=== PATIENT | female | born 1955 | race Caucasian/White ===

== ENCOUNTER → 2018-02-23 09:09 | Outpatient (CLI) | payer OTHER, SELFPAY ==
[2018-02-23 10:04] LABS: Alanine Aminotransferase 23 IU/L (9-52); Albumin 4.5 g/dL (3.5-5.0); Albumin Globulin Ratio 1.3 (1.0-2.8); Alkaline Phosphatase 78 U/L (38-126); Aspartate Aminotransferase 27 IU/L (14-36); BUN Creatinine Ratio 16.3 (6-22); Bilirubin Total 0.7 mg/dL (0.2-1.3); Blood Urea Nitrogen 13 mg/dL (7-17); Calcium 9.3 mg/dL (8.4-10.2); Carbon Dioxide 31 mmol/L (22-32); Chloride 99 mmol/L (98-107); Cholesterol 181 mg/dL (140-199); Estimated Glomerular Filt Rate > 60.0 mL/min (>60); Globulin 3.5 g/dL (1.7-4.1); Glucose 135 mg/dL (80-110); HDL Cholesterol 59 mg/dL (40-60); HEMOLYSIS < 15 (0-50); LDL Cholesterol Calculated 95 mg/dL (<100); Potassium 3.9 mmol/L (3.4-5.1); Sodium 142 mmol/L (137-145); Triglycerides 136 mg/dL (35-150)
== END ==
PROVIDERS: Family Provider Physician Assistant; PCP Physician Assistant; Visit Provider Physician Assistant
DX: E78.5 Hyperlipidemia, unspecified (principal); Z51.81 Encounter for therapeutic drug level monitoring
CPT/HCPCS: 36415; 80053; 80061

== ENCOUNTER → 2018-02-28 11:40 | Outpatient (CLI) | payer OTHER, SELFPAY ==
[2018-02-28 12:21] LABS: Hemoglobin A1C% w Est Avg Glu 6.3 % (4.0-6.0)
== END ==
PROVIDERS: PCP Physician Assistant; Visit Provider Physician Assistant
DX: R73.01 Impaired fasting glucose (principal)
CPT/HCPCS: 36415; 83036

== ENCOUNTER → 2018-10-26 09:13 | Outpatient (CLI) | payer OTHER, SELFPAY ==
[2018-10-26 09:55] LABS: Hemoglobin A1C% w Est Avg Glu 6.8 % (4.0-6.0)
[2018-10-26 10:18] LABS: Creatinine Urine Random 114.5 mg/dL
[2018-10-26 10:21] LABS: Alanine Aminotransferase 28 IU/L (9-52); Albumin 4.4 g/dL (3.5-5.0); Albumin Globulin Ratio 1.4 (1.0-2.8); Alkaline Phosphatase 76 U/L (38-126); Aspartate Aminotransferase 27 IU/L (14-36); BUN Creatinine Ratio 16.7 (6-22); Bilirubin Total 0.5 mg/dL (0.2-1.3); Blood Urea Nitrogen 10 mg/dL (7-17); Calcium 9.3 mg/dL (8.4-10.2); Carbon Dioxide 29 mmol/L (22-32); Chloride 101 mmol/L (98-107); Cholesterol 172 mg/dL (140-199); Estimated Glomerular Filt Rate > 60.0 mL/min (>60); Globulin 3.2 g/dL (1.7-4.1); Glucose 133 mg/dL (80-110); HDL Cholesterol 55 mg/dL (40-60); HEMOLYSIS < 15 (0-50); LDL Cholesterol Calculated 83 mg/dL (<100); Potassium 4.3 mmol/L (3.4-5.1); Sodium 138 mmol/L (137-145); Total Protein 7.6 g/dL (6.3-8.2); Triglycerides 169 mg/dL (35-150)
[2018-10-26 10:23] LABS: Microalbumi Creatinin Ratio Ur 6.1 ug/mg CR (<30); Microalbumin Urine Random 0.7 mg/dL (0-1.6)
== END ==
PROVIDERS: PCP Physician Assistant; Visit Provider Physician Assistant
DX: E78.2 Mixed hyperlipidemia (principal); R73.01 Impaired fasting glucose
CPT/HCPCS: 36415; 80053; 80061; 82043; 82570; 83036

== ENCOUNTER → 2018-11-02 15:30 | Outpatient (CLI) | payer OTHER, SELFPAY ==
--- NOTE | 2018-11-02 | DI.MG.S_ITS ---
BILATERAL DIGITAL SCREENING MAMMOGRAM 3D/2D WITH CAD: 11/02/2018 CLINICAL: Routine screening. Family history of breast cancer. Comparison is made to exams dated: 03/02/2017 mammogram, 12/26/2012 mammogram, and 11/24/2011 mammogram - [facility]. There are scattered fibroglandular elements in both breasts. Current study was also evaluated with a Computer Aided Detection (CAD) system. No significant masses, calcifications, or other findings are seen in either breast. There has been no significant interval change. IMPRESSION: NEGATIVE There is no mammographic evidence of malignancy. A 1 year screening mammogram is recommended. This exam was interpreted at Station ID: [id number]. NOTE: For mammograms, a report in lay terms will be sent to the patient. Approximately 15% of breast malignancies will not be visualized mammographically. In the management of a palpable breast mass, a negative mammogram must not discourage biopsy of a clinically suspicious lesion. Electronically Signed By: Casandra frazier/david:11/02/2018 16:58:47 letter sent: Normal Exam ACR BI-RADS Category 1: Negative 3341F
== END ==
PROVIDERS: PCP Physician Assistant; Visit Provider Physician Assistant
DX: Z12.31 Encounter for screening mammogram for malignant neoplasm of breast (principal); Z80.3 Family history of malignant neoplasm of breast
CPT/HCPCS: 77063; 77067

== ENCOUNTER → 2019-03-15 10:13 | Outpatient (CLI) | payer OTHER, SELFPAY ==
[2019-03-15 11:10] LABS: Hemoglobin A1C% w Est Avg Glu 6.8 % (4.0-6.0)
[2019-03-15 11:34] LABS: Alanine Aminotransferase 19 IU/L (9-52); Albumin 4.4 g/dL (3.5-5.0); Albumin Globulin Ratio 1.3 (1.0-2.8); Alkaline Phosphatase 92 U/L (38-126); Aspartate Aminotransferase 28 IU/L (14-36); BUN Creatinine Ratio 15.7 (6-22); Bilirubin Total 0.6 mg/dL (0.2-1.3); Blood Urea Nitrogen 11 mg/dL (7-17); Calcium 9.6 mg/dL (8.4-10.2); Carbon Dioxide 30 mmol/L (22-32); Chloride 101 mmol/L (98-107); Cholesterol 221 mg/dL (140-199); Estimated Glomerular Filt Rate > 60.0 mL/min (>60); Globulin 3.5 g/dL (1.7-4.1); Glucose 140 mg/dL (80-110); HDL Cholesterol 59 mg/dL (40-60); HEMOLYSIS < 15 (0-50); LDL Cholesterol Calculated 124 mg/dL (<100); Potassium 4.3 mmol/L (3.4-5.1); Sodium 139 mmol/L (137-145); Total Protein 7.9 g/dL (6.3-8.2); Triglycerides 188 mg/dL (35-150)
[2019-03-15 12:44] LABS: Creatinine Urine Random 73.5 mg/dL
[2019-03-15 12:49] LABS: Microalbumi Creatinin Ratio Ur 8.1 ug/mg CR (<30); Microalbumin Urine Random < 0.6 mg/dL (0-1.6)
== END ==
PROVIDERS: PCP Physician Assistant; Visit Provider Physician Assistant
DX: E11.9 Type 2 diabetes mellitus without complications (principal); E78.2 Mixed hyperlipidemia; Z51.81 Encounter for therapeutic drug level monitoring
CPT/HCPCS: 36415; 80053; 80061; 82043; 82570; 83036

== ENCOUNTER → 2019-09-21 09:56 | Outpatient (CLI) | payer OTHER, SELFPAY ==
[2019-09-21 11:09] LABS: Hemoglobin A1C% w Est Avg Glu 6.8 % (4.0-6.0)
[2019-09-21 11:10] LABS: Alanine Aminotransferase 18 IU/L (<35); Albumin 4.4 g/dL (3.5-5.0); Albumin Globulin Ratio 1.4 (1.0-2.8); Alkaline Phosphatase 89 U/L (38-126); Aspartate Aminotransferase 25 IU/L (14-36); BUN Creatinine Ratio 17.1 (6-22); Bilirubin Total 0.6 mg/dL (0.2-1.3); Blood Urea Nitrogen 12 mg/dL (7-17); Calcium 9.7 mg/dL (8.4-10.2); Carbon Dioxide 28 mmol/L (22-32); Chloride 100 mmol/L (98-107); Cholesterol 179 mg/dL (140-199); Estimated Glomerular Filt Rate > 60.0 mL/min (>60); Globulin 3.2 g/dL (1.7-4.1); Glucose 139 mg/dL (80-110); HDL Cholesterol 58 mg/dL (40-60); HEMOLYSIS < 15 (0-50); LDL Cholesterol Calculated 85 mg/dL (<100); Potassium 4.4 mmol/L (3.4-5.1); Sodium 138 mmol/L (137-145); Total Protein 7.6 g/dL (6.3-8.2); Triglycerides 179 mg/dL (35-150)
[2019-09-21 14:22] LABS: Microalbumin Urine Random 0.9 mg/dL (0-1.6)
== END ==
PROVIDERS: PCP Physician Assistant; Referring Provider Physician Assistant; Visit Provider Physician Assistant
DX: E11.9 Type 2 diabetes mellitus without complications (principal); E78.2 Mixed hyperlipidemia
CPT/HCPCS: 36415; 80053; 80061; 82043; 82570; 83036

== ENCOUNTER → 2020-02-19 10:26 | Outpatient (CLI) | payer OTHER, SELFPAY ==
[2020-02-19 12:14] LABS: Hemoglobin A1C% w Est Avg Glu 7.5 % (4.0-6.0)
== END ==
LOC: LAB 10:27
PROVIDERS: PCP Registered Nurse Diabetes Educator; Referring Provider Registered Nurse Diabetes Educator; Visit Provider Registered Nurse Diabetes Educator
DX: E11.9 Type 2 diabetes mellitus without complications (principal)
CPT/HCPCS: 36415; 83036

== ENCOUNTER → 2021-05-26 17:41 | Outpatient (CLI) | payer OTHER, SELFPAY ==
[2021-05-26 18:05] LABS: Hematocrit 42.5 % (36-46); Hemoglobin 13.9 g/dL (12.0-16.0); Mean Corpuscular HGB Conc 32.8 % (30-36); Mean Corpuscular Hemoglobin 27.6 PG (26-34); Mean Corpuscular Volume 84.1 fL (80-100); Platelet Count 278 X10^3/uL (150-400); Red Blood Cell Count 5.05 X10^6/uL (4.0-5.2); White Blood Cell Count 5.9 X10^3/uL (4.5-11.0)
[2021-05-26 18:18] LABS: Hemoglobin A1C% w Est Avg Glu 11.1 % (4.0-6.0)
[2021-05-26 18:22] LABS: Alanine Aminotransferase 34 IU/L (<35); Albumin 4.5 g/dL (3.5-5.0); Albumin Globulin Ratio 1.3 (1.0-2.8); Alkaline Phosphatase 118 U/L (38-126); Aspartate Aminotransferase 46 IU/L (14-36); BUN Creatinine Ratio 18.2 (6-22); Bilirubin Total 0.5 mg/dL (0.2-1.3); Blood Urea Nitrogen 8 mg/dL (7-17); Calcium 9.6 mg/dL (8.4-10.2); Carbon Dioxide 32 mmol/L (22-32); Chloride 99 mmol/L (98-107); Cholesterol 225 mg/dL (140-199); Estimated Glomerular Filt Rate > 60.0 mL/min (>60); Globulin 3.4 g/dL (1.7-4.1); Glucose 159 mg/dL (80-110); HDL Cholesterol 60 mg/dL (40-60); HEMOLYSIS < 15 (0-50); LDL Cholesterol Calculated 120 mg/dL (<100); Potassium 3.7 mmol/L (3.4-5.1); Sodium 139 mmol/L (137-145); Total Protein 7.9 g/dL (6.3-8.2); Triglycerides 225 mg/dL (35-150)
[2021-05-26 18:52] LABS: TSH w/ Reflex to FT4 1.45 uIU/mL (0.47-4.68)
[2021-05-26 19:04] LABS: Creatinine Urine Random 82.5 mg/dL
[2021-05-26 19:09] LABS: Microalbumi Creatinin Ratio Ur 36.3 ug/mg CR (<30)
== END ==
PROVIDERS: PCP Registered Nurse Diabetes Educator; Referring Provider Registered Nurse Diabetes Educator; Visit Provider Registered Nurse Diabetes Educator
DX: E11.9 Type 2 diabetes mellitus without complications (principal); E78.2 Mixed hyperlipidemia
CPT/HCPCS: 36415; 80053; 80061; 82043; 82570; 83036; 84443; 85027

== ENCOUNTER → 2021-05-28 14:34 | Outpatient (CLI) | payer OTHER, SELFPAY ==
[2021-05-28 15:12] LABS: COVID19 -Nasal RAPID POSITIVE (Negative)
== END ==
PROVIDERS: PCP Registered Nurse Diabetes Educator; Visit Provider Nurse Practitioner
DX: U07.1 COVID-19 (principal)
CPT/HCPCS: 87635

== ENCOUNTER → 2021-10-06 09:15 | Outpatient (CLI) | payer OTHER, SELFPAY ==
--- NOTE | 2021-10-06 14:04 | DIAB.INIT ---
Initial Diabetes Education Assessment Name: Jess Smith Date: 10/06/21 Time: [id number] Dx: type II diabetes Provider: Jose Preferred Learning Style: Karol Mercado presents for initial diabetes education visit. FH of Dm with 4/7 brothers, 5 sisters, and paternal grandmother. Endorses PMH of GDM in 1995 with youngest child. Reports trying to manage her Bg for many years. Per her labs this is the first time her HgA1c was >8%. Endorses high stress over the last two years with custody issues around her granddaughter, whom she is close with and watches regularly. This is a tearful explanation and it seems the stress of this has impacted her health. Further, she reports difficulty focusing on making lifestyle changes and caring for herself during this time. To manage stress, she reads books, watches TV, or tries to stay busy. Socially she has not seen friends in some time and often forgets what day it is. She has increased Metformin ER to 1000mg BID. c/o diarrhea even on ER, but is not taking this with food. Takes morning dose with milk and evening dose 2-3 hrs after dinner. Worries Metformin negatively impacts her kidneys. Worries about needing additional medications. Not amenable to injections. Anthropometrics: Ht: 62 Wt: 170# (reported and at last PCP visit) Weight history: Reports a 9# loss, which she attributes to not eating enough when stressed. Likely hyperglycemia may play a role as well. Physical Activity: No program, though walks granddaughter to bus BID (10-15 min ea). Bowling on Sundays. May walk on some weekends with family. Self-Monitoring Blood Glucose: No meter currently. States she is waiting for the rx. Given that she is worried about finances with insurance coverage and lab work, SMBG seems to be a good tool for her during the in between HgA1c checks. She is open to checking and states she has already discussed this with her provider's staff today. Diabetes Medications: Metformin ER 1000mg BID Pertinent Labs: HgA1c: 05/26/21 11.1 02/19/20 7.5 09/22/19 6.8 03/15/19 6.8 Past Medical History: (Last Updated 07/28/21 @ 12:16 by EMELY Albrecht) Diabetes type 2, uncontrolled Dyslipidemia Microalbuminuria Obesity Intervention: This participant was very receptive. Provided appropriate educational handouts. Discussed the following topics: Completed intake assessment. Discussed barriers to care. Brief: Pathophysiology of type 2 diabetes, FH, risk factors, GDM hx HgA1c and changes over time, 2-3 mo average, goal of <7% Importance of self-monitoring Kidney health; managing BG, BP, and hydration Plate Method, impact of macronutrients on blood sugar, meal timing, pairing macronutrients and spreading out carbohydrates for better blood glucose management General recommended servings for carbohydrates at meals and snacks Role of physical activity and following guidelines for safety Created SMART goals for patient self-care and success. Goals: Get a calendar and do something for yourself (ie walk with friends) Aim for 6-8c water daily Take Metformin with food Check on SMBG meter Follow-up: KIKI GRADY follow-up in 2-4 weeks Zunilda Field RDN, [facility] Certified Diabetes Care and Elevator Conductor P: [phone] Thank you for this referral
== END ==
PROVIDERS: PCP Registered Nurse Diabetes Educator; Referring Provider Registered Nurse Diabetes Educator; Visit Provider Registered Nurse Diabetes Educator
DX: E11.9 Type 2 diabetes mellitus without complications (principal); Z79.84 Long term (current) use of oral hypoglycemic drugs; Z71.3 Dietary counseling and surveillance
CPT/HCPCS: G0108

== ENCOUNTER → 2021-11-04 08:45 | Outpatient (CLI) | payer OTHER, SELFPAY ==
--- NOTE | 2021-11-09 14:17 | DIAB.FU ---
Follow-up Diabetes Education Assessment Name: Jess Smith Date: 11/04/21 Time: [id number] Dx: Type II Diabetes Jess presents for follow-up regarding T2DM. She has received and brought her meter today. Has not tried using it yet, and she would like direction on use. Meter type: freestyle verio flex Jess was provided instruction on meter use and returned a demonstration. Verbalized understanding and capability of use at home. Today in clinic her BG was 185 mg/dL (H) before eating. States she has been drinking soda when she has a headache. Seems her headaches may be from hyperglycemia. Encouraged her to check BG when having a headache, instead of drinking sugared beverage. Reports cont stressors with family dynamics. Daughter recently had loss. Jess reports provider would like for her to manage her depression with medication and therapy. She is not currently open to this. States she does not have time for therapy. Tells me her granddaughter and daughter have received helpful therapy, but she is not wanting to participate in treatment. Currently, no stress or depression management in place. Endorses trying to eat healthier recently. Though also reports sometimes forgetting to eat all together. Has increased water intake. Taking metformin all together now at noon with a meal. [id number] ER. Physical Activity: bowling weekly, walking 3 x per week 1.5-2mi with grandchild Self-Monitoring Blood Glucose: Late FBG today of 185 H in clinic Diabetes Medications: Metformin ER 1000mg BID (taking all together) Pertinent Labs: HgA1c: 05/26/21 11.1 02/19/20 7.5 09/22/19 6.8 03/15/19 6.8 Past Medical History: (Last Reviewed 11/09/21 @ 12:40 by EMELY Albrecht) Diabetes type 2, uncontrolled Dyslipidemia Microalbuminuria Obesity Intervention: This participant was very receptive. Provided appropriate educational handouts. Discussed the following topics: Meter education: how to check, when to check, return demo Stress and impact on BG Stress management options Potential for additional medications Taking care of your health in order to be there for others Created SMART goals for patient self-care and success. Goals: Get a calendar and do something for yourself (ie walk with friends)- in progres Aim for 6-8c water daily- met Take Metformin with food- met Check on SMBG meter- met Check BG FBG and/or 1-2 hr pc- new Follow-up: KIKI GRADY follow-up in 2-3 weeks Jess has a lot of social stresses. Seems difficult for her to manage her own health with so many concerns about taking care of her family. with current Bg in clinic, seems likely that she will need an additional DM medication, but she may not be completely open to this at this time. Will discuss further next visit. Has f/u scheduled with PCP. Zunilda Field RDN, [facility] Certified Diabetes Care and Stacker Driver P: [phone] Thank you for this referral
== END ==
PROVIDERS: PCP Registered Nurse Diabetes Educator; Referring Provider Registered Nurse Diabetes Educator; Visit Provider Registered Nurse Diabetes Educator
DX: E11.65 Type 2 diabetes mellitus with hyperglycemia (principal)
CPT/HCPCS: G0108

== ENCOUNTER → 2021-11-06 08:55 | Outpatient (CLI) | payer OTHER, SELFPAY ==
[2021-11-06 09:53] LABS: Hemoglobin A1C% w Est Avg Glu 10.2 % (4.0-6.0)
[2021-11-06 09:54] LABS: Alanine Aminotransferase 22 IU/L (<35); Albumin 4.3 g/dL (3.5-5.0); Albumin Globulin Ratio 1.3 (1.0-2.8); Alkaline Phosphatase 90 U/L (38-126); Aspartate Aminotransferase 26 IU/L (14-36); Bilirubin Total 0.5 mg/dL (0.2-1.3); Bilirubin Unconjugated 0.6 mg/dL (0.0-1.1); Cholesterol 171 mg/dL (140-199); Globulin 3.3 g/dL (1.7-4.1); HDL Cholesterol 57 mg/dL (40-60); HEMOLYSIS < 15 (0-50); LDL Cholesterol Calculated 90 mg/dL (<100); Total Protein 7.6 g/dL (6.3-8.2); Triglycerides 120 mg/dL (35-150)
[2021-11-06 10:31] LABS: Creatinine Urine Random 117.7 mg/dL
[2021-11-06 10:37] LABS: Microalbumi Creatinin Ratio Ur 8.4 ug/mg CR (<30)
== END ==
PROVIDERS: PCP Registered Nurse Diabetes Educator; Referring Provider Registered Nurse Diabetes Educator; Visit Provider Registered Nurse Diabetes Educator
DX: R80.9 Proteinuria, unspecified (principal); E78.5 Hyperlipidemia, unspecified; E11.65 Type 2 diabetes mellitus with hyperglycemia; R74.8 Abnormal levels of other serum enzymes
CPT/HCPCS: 36415; 80061; 80076; 82043; 82570; 83036

== ENCOUNTER → 2022-03-07 09:57 | Outpatient (CLI) | payer OTHER, SELFPAY ==
[2022-03-07 11:08] LABS: Hemoglobin 13.7 g/dL (12.0-16.0); Mean Corpuscular HGB Conc 33.5 % (30-36); Mean Corpuscular Volume 83.8 fL (80-100); Platelet Count 301 X10^3/uL (150-400); Red Blood Cell Count 4.89 X10^6/uL (4.0-5.2); Red Cell Distribution Width 14.3 % (11.6-14.8); White Blood Cell Count 7.6 X10^3/uL (4.5-11.0)
[2022-03-07 11:29] LABS: Hemoglobin A1C% w Est Avg Glu 10.1 % (4.0-6.0)
[2022-03-07 11:52] LABS: Alanine Aminotransferase 23 IU/L (<35); Albumin 4.9 g/dL (3.5-5.0); Albumin Globulin Ratio 1.5 (1.0-2.8); Alkaline Phosphatase 113 U/L (38-126); Aspartate Aminotransferase 28 IU/L (14-36); BUN Creatinine Ratio 13.8 (6-22); Bilirubin Total 0.7 mg/dL (0.2-1.3); Blood Urea Nitrogen 9 mg/dL (7-17); Calcium 9.6 mg/dL (8.4-10.2); Carbon Dioxide 28 mmol/L (22-32); Chloride 99 mmol/L (98-107); Cholesterol 198 mg/dL (140-199); Estimated Glomerular Filt Rate > 60 mL/min (>60); Globulin 3.3 g/dL (1.7-4.1); Glucose 230 mg/dL (80-110); HDL Cholesterol 58 mg/dL (40-60); HEMOLYSIS < 15 (0-50); LDL Cholesterol Calculated 108 mg/dL (<100); Potassium 4.6 mmol/L (3.4-5.1); Sodium 137 mmol/L (137-145); Total Protein 8.2 g/dL (6.3-8.2); Triglycerides 161 mg/dL (35-150)
== END ==
PROVIDERS: PCP Registered Nurse Diabetes Educator; Referring Provider Registered Nurse Diabetes Educator; Visit Provider Registered Nurse Diabetes Educator
DX: E11.65 Type 2 diabetes mellitus with hyperglycemia (principal); E78.2 Mixed hyperlipidemia; E78.5 Hyperlipidemia, unspecified; Z00.8 Encounter for other general examination
CPT/HCPCS: 36415; 80053; 80061; 83036; 85027

== ENCOUNTER → 2022-10-29 11:13 | Outpatient (CLI) | payer OTHER, MEDICARE, SELFPAY ==
--- NOTE | 2022-10-29 11:15 | DI.MG.S_ITS ---
BILATERAL DIGITAL SCREENING MAMMOGRAM 3D/2D WITH CAD: 10/29/2022 CLINICAL: Routine screening. Family history of breast cancer. Comparison is made to exams dated: 11/02/2018 mammogram, 03/02/2017 mammogram, and 12/26/2012 mammogram - [facility]. There are scattered areas of fibroglandular density in both breasts (category b / 25%-50% glandular tissue). Current study was also evaluated with a Computer Aided Detection (CAD) system. No significant masses, calcifications, or other findings are seen in either breast. There has been no significant interval change. IMPRESSION: NEGATIVE There is no mammographic evidence of malignancy. A 1 year screening mammogram is recommended. Based on the Tyrer Cuzick model (a risk assessment model) the patient's lifetime risk is 7.7% and her 10 year risk is 3.7%. According to the ACR, ACS, and NCCN guidelines, an annual breast MRI exam along with mammogram is recommended if the patient's lifetime risk is 20% or greater. This exam was interpreted at Station ID: [id number]. NOTE: For mammograms, a report in lay terms will be sent to the patient. Approximately 15% of breast malignancies will not be visualized mammographically. In the management of a palpable breast mass, a negative mammogram must not discourage biopsy of a clinically suspicious lesion. Electronically Signed By: Rajeev gonzalez/david:10/31/2022 09:22:54 letter sent: Normal Exam ACR BI-RADS Category 1: Negative 3341F
== END ==
PROVIDERS: PCP Registered Nurse Diabetes Educator; Referring Provider Registered Nurse Diabetes Educator; Visit Provider Registered Nurse Diabetes Educator
DX: Z12.31 Encounter for screening mammogram for malignant neoplasm of breast (principal); Z80.3 Family history of malignant neoplasm of breast
CPT/HCPCS: 77063; 77067

== ENCOUNTER → 2022-12-06 08:34 | Outpatient (CLI) | payer OTHER, MEDICARE, SELFPAY ==
[2022-12-07 06:37] LABS: x Labcorp Estim. Avg Glu (eAG) 157 mg/dL (.); x Labcorp Hemoglobin A1c 7.1 % (4.8-5.6)
== END ==
PROVIDERS: PCP Registered Nurse Diabetes Educator; Referring Provider Registered Nurse Diabetes Educator; Visit Provider Registered Nurse Diabetes Educator
DX: R80.9 Proteinuria, unspecified (principal); E78.5 Hyperlipidemia, unspecified; E11.65 Type 2 diabetes mellitus with hyperglycemia
CPT/HCPCS: 83036

== ENCOUNTER → 2023-02-27 08:31 | Outpatient (CLI) | payer OTHER, MEDICARE, SELFPAY ==
[2023-02-27 10:09] LABS: Hematocrit 37.6 % (36-46); Hemoglobin 12.6 g/dL (12.0-16.0); Mean Corpuscular HGB Conc 33.6 % (30-36); Mean Corpuscular Hemoglobin 27.8 PG (26-34); Mean Corpuscular Volume 82.8 fL (80-100); Platelet Count 305 X10^3/uL (150-400); Red Blood Cell Count 4.54 X10^6/uL (4.0-5.2); Red Cell Distribution Width 14.7 % (11.6-14.8); White Blood Cell Count 5.8 X10^3/uL (4.5-11.0)
[2023-02-27 10:39] LABS: Alanine Aminotransferase 21 IU/L (<35); Albumin 4.2 g/dL (3.5-5.0); Albumin Globulin Ratio 1.3 (1.0-2.8); Alkaline Phosphatase 88 U/L (38-126); Aspartate Aminotransferase 23 IU/L (14-36); Bilirubin Total 0.7 mg/dL (0.2-1.3); Blood Urea Nitrogen 12 mg/dL (7-17); Calcium 9.2 mg/dL (8.4-10.2); Carbon Dioxide 28 mmol/L (22-32); Chloride 100 mmol/L (98-107); Cholesterol 172 mg/dL (140-199); Estimated Glomerular Filt Rate > 60 mL/min (>60); Globulin 3.2 g/dL (1.7-4.1); Glucose 144 mg/dL (80-110); HDL Cholesterol 60 mg/dL (40-60); HEMOLYSIS < 15 (0-50); LDL Cholesterol Calculated 91 mg/dL (<100); Potassium 4.8 mmol/L (3.4-5.1); Sodium 136 mmol/L (137-145); Total Protein 7.4 g/dL (6.3-8.2); Triglycerides 104 mg/dL (35-150)
[2023-02-27 10:51] LABS: Creatinine Urine Random 80.4 mg/dL
[2023-02-27 10:58] LABS: Microalbumin Urine Random < 0.6 mg/dL (0-1.6)
[2023-02-27 11:07] LABS: TSH w/ Reflex to FT4 1.57 uIU/mL (0.47-4.68)
[2023-02-28 07:09] LABS: x Labcorp Estim. Avg Glu (eAG) 154 mg/dL (.)
== END ==
PROVIDERS: PCP Registered Nurse Diabetes Educator; Referring Provider Registered Nurse Diabetes Educator; Visit Provider Registered Nurse Diabetes Educator
DX: R80.9 Proteinuria, unspecified (principal); E78.5 Hyperlipidemia, unspecified; E11.65 Type 2 diabetes mellitus with hyperglycemia
CPT/HCPCS: 36415; 80053; 80061; 82043; 82570; 83036; 84443; 85027

== ENCOUNTER → 2023-03-20 10:29 | Outpatient (CLI) | payer OTHER, MEDICARE, SELFPAY ==
--- NOTE | 2023-03-20 10:59 | DI.DEXA.S_ITS ---
Bone Density Report Name: MANDO BONILLA Age: 68 Sex: Female Ethnicity: White Date of : 1955 Indication: postmenopausal; screening for osteoporosis; Referring Provider: KARLA LEAL Study: Bone densitometry was performed. Exam Date: March 20, 2023 Accession number: [id number] Bone Density: Region BMD T-score Z-score Classification AP Spine(L1-L4) 0.862 -1.7 0.1 Osteopenia Femoral Neck (Left) 0.737 -1.0 0.6 Normal Total Hip (Left) 0.923 -0.2 1.1 Normal Femoral Neck (Right) 0.679 -1.5 0.0 Osteopenia Total Hip (Right) 0.829 -0.9 0.4 Normal Total Hip Mean 0.876 -0.6 0.8 Normal World Health Organization criteria for BMD impression classify patients as: Normal (T-score at or above -1.0), Osteopenia (T-score between -1.0 and -2.5), or Osteoporosis (T-score at or below -2.5). Impression: The patient has low bone mass, based on the Total Spine T-score. Discussion: BONE DENSITY IS LOW AT ONE OR MORE SKELETAL SITES. This patient's lowest T-score is low at one or more skeletal sites. It meets the World Health Organization's (WHO) criteria for ?low bone mass? (T-score between -1.0 and -2.5). The patient's 10-year risk of fracture as calculated by FRAX is less than the threshold where pharmacological therapy is recommended by the National Osteoporosis Foundation (NOF). However, all treatment decisions require clinical judgment and consideration of individual patient factors, including patient preferences, comorbidities, previous drug use, risk factors not captured in the FRAX model (e.g., frailty, falls, vitamin D deficiency, increased bone turnover, interval significant decline in bone density) and possible under or overestimation of fracture risk by FRAX. The patient should follow a healthful lifestyle (good nutrition with adequate calcium and vitamin D, and appropriate weight-bearing exercise). Follow-Up: Consider repeating this study in 2 to 3 years to reassess this patient's status, or sooner if there is some new clinical indication. Reported by: JUAN FAUST M.D on 03/20/2023 11:09:00 AM.
== END ==
PROVIDERS: PCP Registered Nurse Diabetes Educator; Referring Provider Registered Nurse Diabetes Educator; Visit Provider Registered Nurse Diabetes Educator
DX: Z13.820 Encounter for screening for osteoporosis (principal); M85.88 Other specified disorders of bone density and structure, other site; Z78.0 Asymptomatic menopausal state
CPT/HCPCS: 77080

== ENCOUNTER 2023-04-11 09:59 | Day surgery (SDC) | payer OTHER, MEDICARE, SELFPAY ==
[2023-04-11 10:19] VITALS: BP 124/71; PULSE 94; RESP 16; TEMP 35.9; O2SAT 97; BMI 28.3
[2023-04-11] MEDS: LACTATED RINGERS 1,000 ML 200 ML IV (10:38)
--- NOTE | 2023-04-11 11:21 | P.HP_ITS ---
History of Present Illness History of Present Illness Date Patient Seen: 04/11/23 Time Patient Seen: 11:21 Chief complaint: Screening Colonoscopy Narrative: 68-year-old woman here for screening colonoscopy. No family history of intestinal malignancy. No abdominal pain nausea vomiting unintentional weight loss blood per rectum. [facility] Medical History Diabetes type 2, uncontrolled Dyslipidemia Microalbuminuria Obesity Social History household members: spouse Smoking Status: Never smoker second hand exposure: Yes (only when I go to the [employer] twice a month) alcohol intake: never substance use type: does not use Meds Home Medications and Allergies Home Medications Medication Instructions Recorded Confirmed Type ibuprofen 200 mg capsule (Advil 200 mg PO PRN PRN Pain, Moderate 01/23/17 04/11/23 History Liqui-Gel) ##0 blood-glucose meter #1 ea 10/07/21 03/01/23 Rx atorvastatin 40 mg tablet 40 mg PO BEDTIME #90 tabs 03/01/23 04/11/23 Rx blood sugar diagnostic (Blood #100 ea 03/01/23 03/01/23 Rx Glucose Test strips) lancets 33 gauge (BD Ultra Fine #100 ea 03/01/23 04/11/23 Rx Lancets) metformin 500 mg tablet,extended 1,000 mg PO BID #360 tabs 03/01/23 04/11/23 Rx release 24 hr Allergies Allergy/AdvReac Type Severity Reaction Status Date / Time adhesive [ADHESIVE] Allergy Severe RASH, Verified 03/01/23 10:49 BURNING SENSATION, BLISTERS AND DISCHARGE codeine [CODEINE] AdvReac Intermediate LIGHTHEADED Verified 03/01/23 10:49 AND VOMITING lactase AdvReac Intermediate Diarrhea Verified 04/11/23 06:52 Sulfa (Sulfonamide AdvReac Mild RASH Verified 03/01/23 10:49 Antibiotics) [SULFA (SULFONAMIDE ANTIBIOTICS)] Exam Vital Signs (past 8 hours): - 04/11/23 10:19 Temperature 96.7 F L Pulse Rate 94 H Respiratory Rate 16 Blood Pressure 124/71 Pulse Oximetry 97 Oxygen Delivery Method Room Air Oxygen Delivery Method Room Air Narrative Exam Narrative: General adult woman alert oriented no acute distress Abdomen soft nontender nondistended Assessment & Plan Assessment & Plan narrative: The patient requires colorectal screening and colonoscopy is recommended. Technical details were discussed. Risks, benefits, alternatives explained. Risks including but not limited to myocardial infarction, aspiration, bleeding, pain, missed lesion, incomplete examination, need for further radiographic studies, colonic perforation, and need for major abdominal surgery were discussed. All questions were answered to their satisfaction, and they are in agreement with this plan.
--- NOTE | 2023-04-11 11:28 | P.OP.COLON_ITS ---
Operative Date/Time/Diagnoses Date of procedure: 04/11/23 Time of procedure: 11:28 Pre-op diagnosis: Screening colonoscopy Procedure & Clinicians Study performed: Colonoscopy Same procedure as scheduled: Yes Indications: Colorectal screening Surgeon: Kyle Feldman Procedure Notes Procedure in detail: The history and physical was performed/updated and the patient is ASA class is 2. The procedure was discussed in detail with the patient. Potential risks complications including infection, bleeding, missed diagnosis, perforation, need for surgery, and were explained. Their questions were answered and informed consent was obtained. Patient was brought to the procedure room and placed standard monitoring equipment. The patient's vital signs were monitored continuously throughout the entire procedure. Prior to starting time-out was performed. The patient was placed in the left lateral recumbent position. Procedural sedation was administered by anesthesia. Examination began with a thorough inspection of the perianal area there was no evidence of fissures, fistulae, external hemorrhoids or cutaneous malignancy. The colonoscopy scope was then placed into the anal canal and was advanced to the cecum, which was identified by the ileocecal teresita ve, the appendiceal orifice and the confluence of the taenia. The scope was then slowly withdrawn examining colon thoroughly in all directions, irrigating it of any residual stool. Normal healthy colon. No masses polyps or inflammation The patient tolerated the procedure well. They will be discharged once criteria are met. The prep was of good/excellent quality. The withdrawl time was 6 mi nutes. Specimen(s): none sent Impression: Normal colonoscopy Post-procedure Recommendations: Colonoscopy in 10 years Disposition: same day surgery
[2023-04-11 11:50] VITALS: BP 90/52; PULSE 86; RESP 15; TEMP 37.1; O2SAT 97
[2023-04-11 11:55] VITALS: BP 91/51; PULSE 83; RESP 13; TEMP 37.1; O2SAT 97
[2023-04-11 12:04] VITALS: BP 95/59; PULSE 82; RESP 14; O2SAT 97
[2023-04-11 12:09] VITALS: BP 90/61; PULSE 79; RESP 12; O2SAT 98
[2023-04-11 12:24] VITALS: BP 98/57; PULSE 77; RESP 14; O2SAT 98
== END 2023-04-11 12:35 | disposition home or self-care (01) ==
PROVIDERS: PCP Registered Nurse Diabetes Educator; Referring Provider Surgery; Visit Provider Surgery
PROC: 0DJD8ZZ Inspection of Lower Intestinal Tract, Via Natural or Artificial Opening Endoscopic (ICD-10-PCS; CPT 45378; principal; 2023-04-11 11:15)
DX: Z12.11 Encounter for screening for malignant neoplasm of colon (principal)
CPT/HCPCS: 45378; J2704

== ENCOUNTER → 2023-06-13 07:29 | Outpatient (CLI) | payer OTHER, MEDICARE, SELFPAY ==
[2023-06-13 08:25] LABS: Hemoglobin A1C% w Est Avg Glu 7.6 % (4.0-6.0)
== END ==
PROVIDERS: PCP Registered Nurse Diabetes Educator; Referring Provider Registered Nurse Diabetes Educator; Visit Provider Registered Nurse Diabetes Educator
DX: E11.65 Type 2 diabetes mellitus with hyperglycemia (principal)
CPT/HCPCS: 36415; 83036

== ENCOUNTER → 2023-06-15 12:26 | Outpatient (CLI) | payer OTHER, MEDICARE, SELFPAY ==
--- NOTE | 2023-06-15 12:30 | DI.RAD.S_ITS ---
PROCEDURE: XR THORACIC SPINE 3V INDICATIONS: eval L shoulder pain, poss LUE radiculopathy, neck pain TECHNIQUE: 3 views of the thoracic spine were acquired. COMPARISON: None. FINDINGS: Bones: No fractures or dislocations. No suspicious bony lesions. 12 pairs of ribs are noted, and appear intact where visualized. Moderate degenerative disc changes throughout the thoracic spine. Mild facet hypertrophy throughout the thoracic spine. Soft tissues: No paravertebral stripe thickening. Cholecystectomy clips. IMPRESSION: 1. Multilevel degenerative disc disease. 2. Multilevel facet arthropathy. 3. No acute osseous lesion. If symptoms and/or clinical suspicion for pathology persists, evaluation with MRI should be considered for further assessment. Dictated by: Shanell Ruelas MD, PhD on 06/15/2023 at 14:12 Approved by: Shanell Ruelas MD, PhD on 06/15/2023 at 14:13
--- NOTE | 2023-06-15 12:30 | DI.RAD.S_ITS ---
PROCEDURE: XR CERVICAL SPINE 4V OR 5V INDICATIONS: eval L shoulder pain, poss LUE radiculopathy, neck pain TECHNIQUE: 5 views of the cervical spine acquired. COMPARISON: None. FINDINGS: Bones: No fractures or dislocations to the T1 level. There is trace, approximately 2 millimeters of C4-C5 anterolisthesis. Mild C4-C5, C5-C6 and C6-C7 degenerative disc disease. Oblique images demonstrate no bony foraminal stenoses. Soft tissues: No prevertebral soft tissue swelling. IMPRESSION: Mild multilevel degenerative disease. No acute osseous lesion. If symptoms and/or clinical suspicion for pathology persists, evaluation with MRI should be considered for further assessment. Dictated by: Shanell Ruelas MD, PhD on 06/15/2023 at 14:10 Approved by: Shanell Ruelas MD, PhD on 06/15/2023 at 14:12
--- NOTE | 2023-06-15 12:30 | DI.RAD.S_ITS ---
PROCEDURE: XR SHOULDER LT MIN 2V INDICATIONS: eval L shoulder pain, poss LUE radiculopathy, neck pain TECHNIQUE: 3 views of the shoulder were acquired. COMPARISON: None. FINDINGS: Bones: No fractures or dislocations. No suspicious bony lesions. Visualized ribs appear intact. Soft tissues: No suspicious soft tissue calcifications. IMPRESSION: No osseous lesion. If symptoms and/or clinical suspicion for pathology persists, further assessment with advanced imaging (e.g. CT, MRI or bone scan) should be considered. Dictated by: Shanell Ruelas MD, PhD on 06/15/2023 at 14:09 Approved by: Shanell Ruelas MD, PhD on 06/15/2023 at 14:10
== END ==
PROVIDERS: PCP Registered Nurse Diabetes Educator; Referring Provider Registered Nurse Diabetes Educator; Visit Provider Registered Nurse Diabetes Educator
DX: M50.321 Other cervical disc degeneration at C4-C5 level (principal); M51.34 Other intervertebral disc degeneration, thoracic region; M47.814 Spondylosis without myelopathy or radiculopathy, thoracic region; M25.512 Pain in left shoulder
CPT/HCPCS: 72050; 72072; 73030

== ENCOUNTER → 2023-10-02 09:35 | Outpatient (CLI) | payer OTHER, MEDICARE, SELFPAY ==
[2023-10-03 07:27] LABS: x Labcorp Estim. Avg Glu (eAG) 203 mg/dL (.); x Labcorp Hemoglobin A1c 8.7 % (4.8-5.6)
== END ==
LOC: LAB 09:37
PROVIDERS: PCP Registered Nurse Diabetes Educator; Referring Provider Registered Nurse Diabetes Educator; Visit Provider Registered Nurse Diabetes Educator
DX: E11.9 Type 2 diabetes mellitus without complications (principal)
CPT/HCPCS: 36415; 83036

== ENCOUNTER → 2024-08-24 09:34 | Outpatient (CLI) | payer OTHER, MEDICARE, SELFPAY ==
[2024-08-24 10:19] LABS: Hemoglobin A1C% w Est Avg Glu 7.5 % (4.0-6.0)
== END ==
LOC: LAB 09:36
PROVIDERS: PCP Registered Nurse Diabetes Educator; Referring Provider Registered Nurse Diabetes Educator; Visit Provider Registered Nurse Diabetes Educator
DX: E11.65 Type 2 diabetes mellitus with hyperglycemia (principal)
CPT/HCPCS: 36415; 83036

== ENCOUNTER → 2024-09-09 07:52 | Outpatient (CLI) | payer OTHER, MEDICARE, SELFPAY ==
--- NOTE | 2024-09-09 | DI.MG.S_ITS ---
BILATERAL DIGITAL SCREENING MAMMOGRAM 3D/2D WITH CAD: 09/09/2024 CLINICAL: Routine screening. Family history of breast cancer. Comparison is made to exams dated: 10/29/2022 mammogram, 11/02/2018 mammogram, 03/02/2017 mammogram, and 12/26/2012 mammogram - [facility]. There are scattered areas of fibroglandular density (category b / 25%-50% glandular tissue). Current study was also evaluated with a Computer Aided Detection (CAD) system. There are benign post operative findings in the right breast. No significant masses, calcifications, or other findings are seen in either breast. There has been no significant interval change. IMPRESSION: BENIGN There is no mammographic evidence of malignancy. A 1 year screening mammogram is recommended. Based on the Tyrer Cuzick model (a risk assessment model) the patient's lifetime risk is 8.6% and her 10 year risk is 4.6%. According to the ACR, ACS, and NCCN guidelines, an annual breast MRI exam along with mammogram is recommended if the patient's lifetime risk is 20% or greater. This exam was interpreted at Station ID: [id number]. NOTE: For mammograms, a report in lay terms will be sent to the patient. Approximately 15% of breast malignancies will not be visualized mammographically. In the management of a palpable breast mass, a negative mammogram must not discourage biopsy of a clinically suspicious lesion. Electronically Signed By: Glroia Mora M.D., Ph.D. saima/david:09/09/2024 09:17:55 letter sent: Normal Exam ACR BI-RADS Category 2: Benign
== END ==
PROVIDERS: PCP Registered Nurse Diabetes Educator; Referring Provider Registered Nurse Diabetes Educator; Visit Provider Registered Nurse Diabetes Educator
DX: Z12.31 Encounter for screening mammogram for malignant neoplasm of breast (principal); Z80.3 Family history of malignant neoplasm of breast
CPT/HCPCS: 77063; 77067

== ENCOUNTER → 2024-09-23 10:31 | Outpatient (CLI) | payer OTHER, MEDICARE, SELFPAY ==
[2024-09-23 11:45] LABS: Hematocrit 39.5 % (36-46); Hemoglobin 12.8 g/dL (12.0-16.0); Mean Corpuscular HGB Conc 32.4 % (30-36); Mean Corpuscular Hemoglobin 27.2 PG (26-34); Mean Corpuscular Volume 83.9 fL (80-100); Platelet Count 315 X10^3/uL (150-400); Red Blood Cell Count 4.71 X10^6/uL (4.0-5.2); Red Cell Distribution Width 14.2 % (11.6-14.8); White Blood Cell Count 5.9 X10^3/uL (4.5-11.0)
[2024-09-23 12:06] LABS: Microalbumin Urine Random < 0.6 mg/dL (0-1.6)
[2024-09-23 12:26] LABS: Alanine Aminotransferase 24 IU/L (<35); Albumin 4.5 g/dL (3.5-5.0); Albumin Globulin Ratio 1.7 (1.0-2.8); Alkaline Phosphatase 91 U/L (38-126); Aspartate Aminotransferase 30 IU/L (14-36); BUN Creatinine Ratio 13.7 (6-22); Blood Urea Nitrogen 10 mg/dL (7-17); Calcium 9.7 mg/dL (8.4-10.2); Carbon Dioxide 26 mmol/L (22-32); Chloride 101 mmol/L (98-107); Cholesterol 178 mg/dL (140-199); Estimated Glomerular Filt Rate > 60 mL/min (>60); Globulin 2.7 g/dL (1.7-4.1); Glucose 133 mg/dL (80-110); HDL Cholesterol 63 mg/dL (40-60); HEMOLYSIS < 15 (0-50); LDL Cholesterol Calculated 96 mg/dL (<100); Potassium 4.5 mmol/L (3.4-5.1); Sodium 151 mmol/L (137-145); Total Protein 7.2 g/dL (6.3-8.2); Triglycerides 97 mg/dL (35-150)
[2024-09-23 13:31] LABS: Sodium 136 mmol/L (137-145)
== END ==
PROVIDERS: PCP Registered Nurse Diabetes Educator; Referring Provider Registered Nurse Diabetes Educator; Visit Provider Registered Nurse Diabetes Educator
DX: E11.9 Type 2 diabetes mellitus without complications (principal); R80.9 Proteinuria, unspecified; E87.0 Hyperosmolality and hypernatremia; R03.0 Elevated blood-pressure reading, without diagnosis of hypertension; E78.5 Hyperlipidemia, unspecified
CPT/HCPCS: 36415; 80053; 80061; 82043; 82570; 84295; 85027

== ENCOUNTER → 2025-03-22 09:28 | Outpatient (CLI) | payer OTHER, MEDICARE, SELFPAY ==
[2025-03-22 12:30] LABS: Hemoglobin A1C% w Est Avg Glu 7.8 % (4.0-6.0)
== END ==
PROVIDERS: PCP Registered Nurse Diabetes Educator; Referring Provider Registered Nurse Diabetes Educator; Visit Provider Registered Nurse Diabetes Educator
DX: E11.65 Type 2 diabetes mellitus with hyperglycemia (principal)
CPT/HCPCS: 36415; 83036